=== PATIENT | male | born 1960 | race American Indian/Alaskan Native ===

== ENCOUNTER 2017-10-22 16:35 | Emergency (ER) | payer MEDICAID, MEDICARE ==
[2017-10-22] MEDS ORDERED: CATAPRES PO ONE (17:06)
--- NOTE | 2017-10-22 17:21 | Emergency Department Report ---
ED General Adult HPI - General Chief complaint: High BP Stated complaint: LIGHTHEADED Time Seen by Provider: 10/22/17 16:56 Source: patient Mode of arrival: Ambulatory Limitations: No Limitations - History of Present Illness Initial comments: Patient is a 57-year-old Male past with history of atrial fibrillation as a result as well as a history of hypertension who is on multiple medicines who states he has been out of his blood pressure medicines for the past 2 days. Patient states he still has some lisinopril was completely out of his diltiazem and amiodarone. Patient denies any chest pain shortness of breath decreased urination. Patient states he does feel slightly lightheaded but is not complaining of any headache. - Related Data Home Medications Medication Instructions Recorded Confirmed Last Taken Aspirin EC [Aspirin Enteric Coated 81 mg PO DAILY 03/20/15 06/22/15 06/07/15 TAB] Potassium Chloride 8 meq PO DAILY 03/20/15 06/22/15 06/21/15 Rivaroxaban [Xarelto] 20 mg PO DAILY 03/20/15 06/22/15 06/20/15 Rivaroxaban [Xarelto] 20 mg PO QDAY 06/22/15 06/22/15 06/13/15 Previous Rx's Medication Instructions Recorded Last Taken Type Furosemide [Lasix TAB] 20 mg PO QDAY #14 tablet 03/08/15 06/21/15 Rx Amiodarone HCl [Pacerone] 200 mg PO BID #60 tablet 10/22/17 Unknown Rx dilTIAZem HCl [Diltiazem 24Hr ER] 120 mg PO DAILY #30 cap.er.24h 10/22/17 Unknown Rx Allergies Allergy/AdvReac Type Severity Reaction Status Date / Time coumarin Allergy Intermediate Rash Verified 03/20/15 07:46 warfarin sodium Allergy Nausea Unverified 06/22/15 06:35 [From Coumadin] ED Review of Systems ROS: Stated complaint: LIGHTHEADED Other details as noted in HPI Comment: All other systems reviewed and negative ED Past Medical Hx - Past Medical History Hx Hypertension: Yes Hx Congestive Heart Failure: Yes Hx GERD: Yes Hx Arthritis: Yes Hx Asthma: No Hx COPD: No Additional medical history: A FIB, ON Xarelto, BORDERLINE DIABETIC - Surgical History Additional Surgical History: HERNIA REPAIR - Social History Smoking Status: Former Smoker - Medications Home Medications: Home Medications Medication Instructions Recorded Confirmed Last Taken Type Furosemide [Lasix TAB] 20 mg PO QDAY #14 tablet 03/08/15 06/22/15 06/21/15 Rx Aspirin EC [Aspirin Enteric Coated 81 mg PO DAILY 03/20/15 06/22/15 06/07/15 History TAB] Potassium Chloride 8 meq PO DAILY 03/20/15 06/22/15 06/21/15 History Rivaroxaban [Xarelto] 20 mg PO DAILY 03/20/15 06/22/15 06/20/15 History Rivaroxaban [Xarelto] 20 mg PO QDAY 06/22/15 06/22/15 06/13/15 History Amiodarone HCl [Pacerone] 200 mg PO BID #60 tablet 10/22/17 Unknown Rx dilTIAZem HCl [Diltiazem 24Hr ER] 120 mg PO DAILY #30 cap.er.24h 10/22/17 Unknown Rx ED Physical Exam - General Limitations: No Limitations General appearance: alert, in no apparent distress - Head Head exam: Present: atraumatic, normocephalic - Eye Eye exam: Present: normal appearance - ENT ENT exam: Present: mucous membranes moist - Neck Neck exam: Present: normal inspection - Respiratory Respiratory exam: Present: normal lung sounds bilaterally. Absent: respiratory distress, wheezes, rales, rhonchi - Cardiovascular Cardiovascular Exam: Present: regular rate, normal rhythm. Absent: systolic murmur, diastolic murmur, rubs, gallop - GI/Abdominal GI/Abdominal exam: Present: soft, normal bowel sounds. Absent: distended, tenderness, guarding - Rectal Rectal exam: Present: deferred - Extremities Exam Extremities exam: Present: normal inspection - Back Exam Back exam: Present: normal inspection - Neurological Exam Neurological exam: Present: alert, oriented X3 - Psychiatric Psychiatric exam: Present: normal affect, normal mood - Skin Skin exam: Present: warm, dry, intact, normal color. Absent: rash ED Course Vital Signs 10/22/17 16:44 Temperature 98.4 F Pulse Rate 62 Respiratory 16 Rate Blood Pressure 213/102 O2 Sat by Pulse 98 Oximetry ED Medical Decision Making - EKG Data -: EKG Interpreted by [place] - EKG Data 10/22/17 17:18 EKG shows sinus bradycardia rate of 56 normal axis normal intervals occasional PAC. Patient's has past EKGs that show atrial flutter. Time of interpretation 1650 - Medical Decision Making Showing no signs of end organ damage. Patient will have his blood pressure medicines refilled patient be discharged home. Patient was given Catapres, will hold patient until blood pressures less than 200 systolic. Critical care attestation.: If time is entered above; I have spent that time in minutes in the direct care of this critically ill patient, excluding procedure time. ED Disposition Clinical Impression: Hypertensive urgency Disposition: DC-01 TO HOME OR SELFCARE Is pt being admited?: No Does the pt Need Aspirin: No Condition: Stable Instructions: Hypertension (ED) Referrals: PRIMARY CARE, [Primary Care Provider] - 3-5 Days Time of Disposition: 17:21
[2017-10-22 17:59] VITALS: BP 182/98
== END 2017-10-22 17:39 | disposition home or self-care (01) ==
LOC: ED 16:35
DX: I10 Essential (primary) hypertension (principal); I48.91 Unspecified atrial fibrillation; K21.9 Gastro-esophageal reflux disease without esophagitis; M19.90 Unspecified osteoarthritis, unspecified site; Z79.82 Long term (current) use of aspirin; Z88.5 Allergy status to narcotic agent; Z87.891 Personal history of nicotine dependence
CPT/HCPCS: 93005; 93010; 99282